=== PATIENT | female | born 1965 | race Caucasian/White ===

== ENCOUNTER 2017-08-15 14:02 | Day surgery (SDC) | payer OTHER ==
[2017-08-15] MEDS ORDERED: PROPOFOL 60 ML (16:10)
== END 2017-08-15 17:04 | disposition home or self-care (01) ==
LOC: GIL 14:02
DX: Z12.11 Encounter for screening for malignant neoplasm of colon (principal); K64.8 Other hemorrhoids; K64.4 Residual hemorrhoidal skin tags; E11.9 Type 2 diabetes mellitus without complications; I10 Essential (primary) hypertension; E78.5 Hyperlipidemia, unspecified; E66.9 Obesity, unspecified; Z68.35 Body mass index [BMI] 35.0-35.9, adult
CPT/HCPCS: 45378

== ENCOUNTER 2017-08-21 06:00 | Day surgery (SDC) | payer OTHER ==
[2017-08-21 06:54] LABS: ADD MAN DIFF? NO
[2017-08-21] MEDS ORDERED: LIDOCAINE 1% (MDV) 20 ML INJ (06:57)
[2017-08-21 06:59] LABS: WHITE BLOOD COUNT 5.5 10^3/ul (4.8-10.8)
[2017-08-21 06:59] LABS: BASOPHIL # 0.1 10^3/ul (0.0-0.1); BASOPHILS % 1.1 % (0.0-2.0); EOSINOPHILS # 0.2 10^3/ul (0.0-0.5); EOSINOPHILS % 3.1 % (0.0-7.0); HEMATOCRIT 40.3 % (37.0-47.0); HEMOGLOBIN 13.6 g/dl (12.0-16.0); LYMPHOCYTES # 2.1 10^3/ul (0.8-2.9); LYMPHOCYTES % 38.4 % (15.0-51.0); MEAN CORPUSCULAR HEMOGLOBIN 31.6 pg (29.0-33.0); MEAN CORPUSCULAR HGB CONC 33.7 g/dl (32.0-37.0); MEAN CORPUSCULAR VOLUME 93.5 fl (82.0-101.0); MEAN PLATELET VOLUME 11.5 fl (7.4-10.4); MONOCYTE # 0.6 10^3/ul (0.3-0.9); MONOCYTES % 10.6 % (0.0-11.0); NEUTROPHIL # 2.5 10^3/ul (1.6-7.5); NEUTROPHILS % 46.4 % (39.0-77.0); PLATELET COUNT 197 10^3/UL (140-415); RED BLOOD COUNT 4.31 10^6/ul (4.20-5.40); RED CELL DISTRIBUTION WIDTH 12.6 % (11.5-14.5)
[2017-08-21 07:16] LABS: ANION GAP 16 (8-16); CARBON DIOXIDE 25 mmol/L (21-31); CHLORIDE 107 mmol/L (97-110); GLUCOSE 147 mg/dl (70-220)
[2017-08-21] MEDS ORDERED: NITROGLYCERIN (IC) 100 MCG/ML INJ (07:17)
[2017-08-21] MEDS ORDERED: VERAPAMIL 5 MG INJ (07:17)
[2017-08-21] MEDS ORDERED: IODIXANOL LOCM 100 ML BTL (07:18)
[2017-08-21] MEDS ORDERED: HEPARIN 1000 UNITS/ML 10 ML INJ (07:18)
[2017-08-21 07:19] LABS: BLOOD UREA NITROGEN 13 mg/dl (7-20); CALCIUM 9.4 mg/dl (8.4-10.2); CREATININE 0.66 mg/dl (0.44-1.00); POTASSIUM 4.5 mmol/L (3.5-5.1); SODIUM 143 mmol/L (135-144)
[2017-08-21] MEDS ORDERED: FENTAnyl 50 MCG/ML VIAL (07:21)
[2017-08-21] MEDS ORDERED: MIDAZOLAM 1 MG/ML 2 ML INJ (07:21)
[2017-08-21 07:27] LABS: INR 1.05; PROTIME 13.8 Sec (11.9-14.9); PT RATIO 1.1
[2017-08-21] MEDS ORDERED: SOD CHLORIDE 0.9% 1,000 ML IV (07:42)
== END 2017-08-21 10:35 | disposition home or self-care (01) ==
LOC: SDS 06:00
DX: I25.10 Atherosclerotic heart disease of native coronary artery without angina pectoris (principal); R94.39 Abnormal result of other cardiovascular function study; E11.9 Type 2 diabetes mellitus without complications; I10 Essential (primary) hypertension
CPT/HCPCS: 80048; 82962; 85025; 85610; 93005; 93458